=== PATIENT | female | born 1990 | race Caucasian/White ===

== ENCOUNTER 2017-12-19 12:04 | Emergency (ER) | payer OTHER ==
[2017-12-19] MEDS: IBUPROFEN 200 MG TAB PO (13:46)
== END 2017-12-19 15:03 | disposition home or self-care (01) ==
LOC: FTE 12:04
DX: S89.92XA Unspecified injury of left lower leg, initial encounter (principal); E66.01 Morbid (severe) obesity due to excess calories; X58.XXXA Exposure to other specified factors, initial encounter; Y92.9 Unspecified place or not applicable
CPT/HCPCS: 73562; 99283-25